=== PATIENT | male | born 1960 | race Caucasian/White ===

== ENCOUNTER → 2017-09-07 | Outpatient (CLI) | payer BC ==
[2017-09-07 10:49] LABS: BASO % 0.3 %; BASO ABS # 0.02 K/uL (0-0.2); COMPLETE YES; EOS % 3.5 %; HEMATOCRIT 46.8 % (42-52); IG% 0.2 %; LYMPH % 22.6 %; MEAN CELL VOLUME 84.8 fL (80-100); MEAN CORPUSCULAR HEMOGLOBIN 29.2 pg (25-34); MEAN CORPUSCULAR HGB CONC 34.4 g/dl (32-36); MEAN PLATELET VOLUME 9.6 fL (7.4-10.4); MONO % 7.2 %; NEUT % 66.2 %; PLATELET COUNT 275 K/uL (130-400); RED BLOOD COUNT 5.52 M/uL (4.7-6.1); WHITE BLOOD COUNT 6.64 K/uL (4.8-10.8)
[2017-09-07 12:22] LABS: BLOOD UREA NITROGEN 15 mg/dl (7-18); BUN/CREATININE RATIO 15.3 (10-20); CALCIUM 8.9 mg/dl (8.5-10.1); CARBON DIOXIDE 25 mmol/L (21-32); CHLORIDE 109 mmol/L (98-107); CHOLESTEROL 181 mg/dl (0-200); CREATININE 0.97 mg/dl (0.60-1.40); GLUCOSE 88 mg/dl (70-99); POTASSIUM 3.9 mmol/L (3.5-5.1); SODIUM 140 mmol/L (136-145); TRIGLYCERIDES 126 mg/dl (0-150); VERY LOW DENSITY LIPOPROT CALC 25 mg/dl
[2017-09-07 12:33] LABS: CHOLESTEROL/HDL RATIO 4.8; HDL CHOLESTEROL 38 mg/dl; LDL CHOLESTEROL CALCULATED 118 mg/dl
== END ==
LOC: C.LABBC 07:59
PROVIDERS: ATTEND Internal Medicine Geriatric Medicine
DX: Z00.00 Encounter for general adult medical examination without abnormal findings (principal); M54.16 Radiculopathy, lumbar region; J30.9 Allergic rhinitis, unspecified; Z11.59 Encounter for screening for other viral diseases; R25.1 Tremor, unspecified